=== PATIENT | female | born 1995 | race African-American/Black ===

== ENCOUNTER 2017-04-16 18:36 | Emergency (ER) | payer BC, SELFPAY ==
[2017-04-16 18:40] VITALS: BP 152/88; PULSE 103; RESP 20; TEMP 36.6; O2SAT 98; BMI 49.6
--- NOTE | 2017-04-16 18:59 | HMH.EDUTC ---
[facility] [place] Disposition Clinical Impression: Medication refill Disposition: Home, Self-Care Condition on Discharge: Good Instructions: Paroxetine, Bupropion Additional Instructions: Follow up with Family doctor TARA Return if needed Go straight to ER if any distress or worsening of symptoms Prescriptions: buPROPion HCl [Wellbutrin Xl] 150 mg PO DAILY #3 tab.er.24h PARoxetine HCl [Paxil 20mg Tablet] 20 mg PO DAILY #3 tab Time of Disposition: 19:12 Medical Decision Making - Medical Records Medical records reviewed: Yes: I reviewed the patient's medical records. Vital Signs: 04/16/17 18:40 Temperature 97.9 F Temperature Source Temporal Artery Scan Pulse Rate [Right Brachial] 103 H Respiratory Rate 20 Blood Pressure [Right Arm] 152/88 Blood Pressure Mean [Right Arm] 109 Blood Pressure Source [Right Arm] Automatic Cuff Blood Pressure Position [Right Arm] Sitting 02 Sat by Pulse Oximetry 98 Oxygen Delivery Method Room Air - Anup Inquiry Pt receiving controlled substance: No Anup was queried for this patient: No - Reevaluation(s) Time: 19:06 Reevaluation #1: Patient advised that she would only get prescription for enough medication untill she could get in to see her Dr On Tuesday or Tuesday for her doctor to authorize refill [facility] [place] HPI - General Stated complaint: RX refill Mode of Arrival: Family Vehicle Source of Information: Patient Limitations: No Limitations Description of Symptoms (Recalled from Triage Doc. by RN): HERE FOR MEDICATION REFILLS HEENT Symptoms (Recalled from RN notes): No Resp Symptoms (Recalled from RN notes): No Skin Symptoms (Recalled from RN notes): No MS Symptoms (Recalled from RN notes): No Functional Status (Recalled from RN notes): N/A - History of Present Illness Provider Complaint: Patient state that she is on Paxil and Wellbutrin xL States that she missed her appointment and was needing to get a few of her medication prescribed to get her through until she sees her doctor on Tuesday or Tuesday. - Related Data Home Medications Medication Instructions Recorded Confirmed bupropion HCl XL 150 mg 24 hr 150 mg PO QAM 02/26/17 04/16/17 tablet, extended release paroxetine mesylate 20 mg tablet 10 mg PO QAM 02/26/17 04/16/17 Previous Rx's Medication Instructions Recorded PARoxetine HCl [Paxil 20mg Tablet] 20 mg PO DAILY #3 tab 04/16/17 buPROPion HCl [Wellbutrin Xl] 150 mg PO DAILY #3 tab.er.24h 04/16/17 Allergies Allergy/AdvReac Type Severity Reaction Status Date / Time No Known Allergies Allergy Verified 02/26/17 17:36 - Worker's Comp Is this a Worker's Comp case?: No [facility] History I have reviewed the patient's past medical history: Yes Laterality Cases: Bilateral: Tonsillectomy - Social History Smoking Status: Never smoker Alcohol Intake: current Alcohol Intake Frequency:: holidays/special occasions only Substance Use Type: denies use - Psychiatric History Expresses thoughts of harming self/others: None Suicide Plan Description: No Plan Family Hx:: Bleeding Disorder, Diabetes, Cancer ROS Obtained: Yes All systems reviewed & no additional complaints Physical Exam - General General appearance: alert, in no apparent distress - Respiratory Respiratory exam: Present: normal lung sounds bilaterally. Absent: respiratory distress - Cardiovascular Cardiovascular exam: Present: regular rate, normal rhythm. Absent: JVD - Neurological Exam Neurological exam: Present: alert, oriented X3
--- NOTE | 2017-04-16 19:03 | ED_ITS ---
[facility] [place]ression: Medication refill Disposition: Home, Self-Care Condition on Discharge: Good Instructions: Paroxetine, Bupropion Additional Instructions: Follow up with Family doctor TARA Return if needed Go straight to ER if any distress or worsening of symptoms Prescriptions: buPROPion HCl [Wellbutrin Xl] 150 mg PO DAILY #3 tab.er.24h PARoxetine HCl [Paxil 20mg Tablet] 20 mg PO DAILY #3 tab Time of Disposition: 19:12 Medical Decision Making - Medical Records Medical records reviewed: Yes: I reviewed the patient's medical records. Vital Signs: 04/16/17 18:40 Temperature 97.9 F Temperature Source Temporal Artery Scan Pulse Rate [Right Brachial] 103 H Respiratory Rate 20 Blood Pressure [Right Arm] 152/88 Blood Pressure Mean [Right Arm] 109 Blood Pressure Source [Right Arm] Automatic Cuff Blood Pressure Position [Right Arm] Sitting 02 Sat by Pulse Oximetry 98 Oxygen Delivery Method Room Air - Anup Inquiry Pt receiving controlled substance: No Anup was queried for this patient: No - Reevaluation(s) Time: 19:06 Reevaluation #1: Patient advised that she would only get prescription for enough medication untill she could get in to see her Dr On Tuesday or Tuesday for her doctor to authorize refill [facility] [place] - General Stated complaint: RX refill Mode of Arrival: Family Vehicle Source of Information: Patient Limitations: No Limitations Description of Symptoms (Recalled from Triage Doc. by RN): HERE FOR MEDICATION REFILLS HEENT Symptoms (Recalled from RN notes): No Resp Symptoms (Recalled from RN notes): No Skin Symptoms (Recalled from RN notes): No MS Symptoms (Recalled from RN notes): No Functional Status (Recalled from RN notes): N/A - History of Present Illness Provider Complaint: Patient state that she is on Paxil and Wellbutrin xL States that she missed her appointment and was needing to get a few of her medication prescribed to get her through until she sees her doctor on Tuesday or Tuesday. - Related Data Home Medications Medication Instructions Recorded Confirmed bupropion HCl XL 150 mg 24 hr 150 mg PO QAM 02/26/17 04/16/17 tablet, extended release paroxetine mesylate 20 mg tablet 10 mg PO QAM 02/26/17 04/16/17 Previous Rx's Medication Instructions Recorded PARoxetine HCl [Paxil 20mg Tablet] 20 mg PO DAILY #3 tab 04/16/17 buPROPion HCl [Wellbutrin Xl] 150 mg PO DAILY #3 tab.er.24h 04/16/17 Allergies Allergy/AdvReac Type Severity Reaction Status Date / Time No Known Allergies Allergy Verified 02/26/17 17:36 - Worker's Comp Is this a Worker's Comp case?: No H History I have reviewed the patient's past medical history: Yes Laterality Cases: Bilateral: Tonsillectomy - Social History Smoking Status: Never smoker Alcohol Intake: current Alcohol Intake Frequency:: holidays/special occasions only Substance Use Type: denies use - Psychiatric History Expresses thoughts of harming self/others: None Suicide Plan Description: No Plan Family Hx:: Bleeding Disorder, Diabetes, Cancer ROS Obtained: Yes All systems reviewed & no additional complaints Physical Exam - General General appearance: alert, in no apparent distress - Respiratory Respiratory exam: Present: normal lung sounds b
[2017-04-16 19:16] VITALS: BP 148/78; PULSE 94; RESP 20; TEMP 36.6; O2SAT 98
== END 2017-04-16 19:17 | disposition home or self-care (01) ==
PROVIDERS: Emergency Provider Nurse Practitioner
DX: Z76.0 Encounter for issue of repeat prescription (principal); F41.8 Other specified anxiety disorders
CPT/HCPCS: 99202

== ENCOUNTER → 2019-10-06 13:15 | Outpatient (CLI) | payer BC, SELFPAY | PROVIDERS: PCP Nurse Practitioner Family; Visit Provider Nurse Practitioner Family | DX: G47.30 Sleep apnea, unspecified (principal); R51 Headache; E66.9 Obesity, unspecified | CPT/HCPCS: G0399 ==

== ENCOUNTER → 2019-11-01 09:46 | Outpatient (CLI) | payer BC, SELFPAY ==
[2019-11-01 10:19] LABS: Basophils % 0.6 % (0.1-2.0); Eosinophils # 0.1 K/mm3 (0.0-0.4); Eosinophils % 0.8 % (0.1-12.0); Hematocrit 44.4 % (37.0-47.0); Hemoglobin 14.7 g/dL (12.2-16.2); Lymphocytes % 26.3 % (10-50); Mean Corpuscular HGB Conc 33.1 g/dL (31.8-35.4); Mean Corpuscular Hemoglobin 28.8 pg (27.0-31.2); Mean Corpuscular Volume 87.2 fl (81-99); Mean Platelet Volume 7.8 fl (7.4-10.4); Monocytes # 0.4 K/mm3 (0.1-1.0); Monocytes % 5.6 % (1.7-9.3); Neutrophils # 5.1 K/mm3 (1.8-7.8); Neutrophils % 66.7 % (37.0-80.0); Platelet Count 259 K/mm3 (142-424); Red Blood Count 5.09 M/mm3 (4.20-5.40); Red Cell Distribution Width 13.4 % (11.5-17.5); White Blood Count 7.6 K/mm3 (4.8-10.8)
[2019-11-01 12:03] LABS: Alanine Aminotransferase 24 U/L (12-78); Albumin Level 4.2 g/dl (3.5-5.0); Albumin/Globulin Ratio 1.3 (1.1-1.8); Alkaline Phosphatase 93 U/L (38-126); Anion Gap 11.6 mEq/L (5-15); Aspartate Amino Transferase 23 U/L (14-36); Bilirubin,Total 0.8 mg/dl (0.2-1.3); Blood Urea Nitrogen 12 mg/dl (7-17); Calcium 9.6 mg/dl (8.4-10.2); Carbon Dioxide 29 mmol/L (22.0-30.0); Chloride 104 mmol/L (98-107); Chol/HDL Ratio 3.9 (1-3.5); Cholesterol 138 mg/dl (140-200); Estimated Glomerular Filt Rate 87 ml/min (>60); GFR (African American) 106 ML/MIN (>60); Globulin 3.3 g/dL (1.3-3.2); Glucose 97 mg/dl (74-100); HDL Cholesterol 35 mg/dl (40-60); Potassium 4.6 mmoL/L (3.5-5.1); Sodium 140 mmol/L (136-145); Total Protein,Serum 7.5 g/dl (6.3-8.2); Triglycerides 257 mg/dl (30-150); VLDL Cholesterol 51 mg/dL (0-40)
[2019-11-01 12:44] LABS: Hemoglobin A1C 5.4 % (4.0-6.0)
[2019-11-01 13:02] LABS: Thyroid Stimulating Hormone 2.85 uIU/mL (0.465-4.68)
[2019-11-01 13:20] LABS: Vitamin B12 352 pg/mL (239-931)
== END ==
PROVIDERS: Visit Provider Nurse Practitioner Family
DX: F41.8 Other specified anxiety disorders (principal); E66.01 Morbid (severe) obesity due to excess calories; E55.9 Vitamin D deficiency, unspecified; R40.0 Somnolence; Z79.899 Other long term (current) drug therapy
CPT/HCPCS: 36415; 80053; 80061; 82306; 82607; 83036; 84443; 85025

== ENCOUNTER 2020-02-02 17:24 | Emergency (ER) | payer BC, SELFPAY ==
[2020-02-02 17:46] VITALS: BP 140/81; PULSE 69; RESP 18; TEMP 36.6; O2SAT 99; BMI 51.3
--- NOTE | 2020-02-02 17:57 | HMH.EDUTC ---
[facility] [place]ression: Close exposure to COVID-19 virus Disposition: Home, Self-Care Condition on Discharge: Good Instructions: DI for COVID-19 (Suspected or Confirmed ), COVID-19: Testing and Tracing, Preventing the Spread of Coronavirus Discharge Instructions, Coronavirus Disease 2019 Additional Instructions: *Monitor Temp, Over the counter Motrin or Tylenol as directed/as needed Tylenol every 4 hours and Motrin every 6 hours (as long as your family doctor has told you that you can take it) for fever or pain. and straight to ER if unable to lower temp less than 101.0 after medication given *Warm salt water gargles may help to soothe the throat *Throat Lozenges *Warm fluids like tea with honey may help to soothe the throat *Sleep elevated *Humidifier/Vaporizer Follow up IMMEDIATELY for new or worsening symptoms or no Noticeable improvement over the next 48-72 hours. 911 for difficulty breathing or swallowing You were tested for today for COVID19 your test result should be back in the next 24-48 hours, you may call to the [facility] to see if your test results are back in the next 48 hours [phone] [facility] hours are 9am-9pm You was given a handout with instructions for Self Quarantine and Self isolation for while you wait on test results and what to do if they are positive If you are positive the Health Dept will be contacting you also Referrals: Tsering Klein APRN [Primary Care Provider] - As needed Forms: Work/School Release Time of Disposition: 17:59 Medical Decision Making - Anup Inquiry Pt receiving controlled substance: No Anup was queried for this patient: No Vital Signs: 02/02/20 17:46 Temperature 97.8 F Temperature Source Oral Pulse Rate [Radial] 69 Respiratory Rate 18 Blood Pressure [Right Arm] 140/81 Blood Pressure Mean [Right Arm] 100 Blood Pressure Source [Right Arm] Automatic Cuff Blood Pressure Position [Right Arm] Sitting 02 Sat by Pulse Oximetry 99 Oxygen Delivery Method Room Air Orders (Tests/Meds): ORDERS Category Date Time Status Covid-19 Nasal PCR ([facility]) Routine Lab 02/02/20 17:50 [place] [facility] [place] - General Stated complaint: covid exposure,headache,sore throat Time Seen by Provider: 02/02/20 17:57 Mode of Arrival: Ambulatory Source of Information: Patient Limitations: No Limitations Description of Symptoms (Recalled from Triage Doc. by RN): covid exposure HEENT Symptoms (Recalled from RN notes): No Resp Symptoms (Recalled from RN notes): No Skin Symptoms (Recalled from RN notes): No MS Symptoms (Recalled from RN notes): No Functional Status (Recalled from RN notes): wnl - History of Present Illness Provider Complaint: Patient states that she lives with family and one member of her household recently tested positive for COVID States that after they told her they was positive she noticed she had a small headache and her throat felt scratchy and sore so she wanted to come in and get tested for COVID - Related Data Previous Rx's Medication Instructions Recorded bupropion HCl 300 mg 24 hr tablet, 300 mg PO DAILY #30 tab 01/08/20 extended release sertraline 100 mg tablet 100 mg PO DAILY #30 tab 01/08/20 Allergies Allergy/AdvReac Type Severity Reaction Status Date / Time No Known Allergies Allergy Verified 11/29/19 09:17 - Worker's Comp Is this a Worker's Comp case?: No [facility] History - Hepatitis A Screen Drug use history?: No High risk sexual behaviors?: No History of sexually transmitted infection?: No Currently employed?: No Childcare worker?: No Do you have indoor plumbing?: Yes Do you have electricity?: Yes Attestation statement:: This patient has been screened for Hepatitis A risk factors. I have reviewed the patient's past medical history: Yes Laterality Cases: Bilateral: Tonsillectomy - Social History Smoking Status: Never smoker Alcohol Intake: never Alcohol Intake Frequency:: holidays/special occasions only
[2020-02-02 18:08] VITALS: BP 140/81; PULSE 69; RESP 18; TEMP 36.6; O2SAT 99
== END 2020-02-02 18:09 | disposition home or self-care (01) ==
PROVIDERS: Emergency Provider Nurse Practitioner; PCP Nurse Practitioner Family
DX: Z20.828 Contact with and (suspected) exposure to other viral communicable diseases (principal); R51.9 Headache, unspecified; J02.9 Acute pharyngitis, unspecified
CPT/HCPCS: 99201; U0003

== ENCOUNTER 2020-02-22 19:10 | Emergency (ER) | payer BC, SELFPAY ==
[2020-02-22 19:30] VITALS: BP 115/85; PULSE 71; RESP 20; TEMP 37.4; O2SAT 97; BMI 50.6
--- NOTE | 2020-02-22 19:49 | HMH.EDUTC ---
[facility] [place] Disposition Clinical Impression: Exposure to COVID-19 virus Disposition: Home, Self-Care Condition on Discharge: Good Instructions: Preventing the Spread of Coronavirus Discharge Instructions Additional Instructions: You have been tested for COVID19. Please isolate yourself as if you are positive until test results received. Vitamin D, Vitamin C and zinc may help. Please call your PCP if you feel worse. Go to ER if you have shortness of breath, etc Referrals: Tsering Klein APRN [Primary Care Provider] - Time of Disposition: 19:55 Medical Decision Making - Anup Inquiry Pt receiving controlled substance: No [facility] [place] HPI - General Stated complaint: covid test Time Seen by Provider: 02/22/20 19:49 - History of Present Illness Provider Complaint: Patient presents with cold symptoms X 3 days. No fever. Now has no taste or smell. No vomiting or diarrhea. Onset (ago): day(s) (3) Relieving factors: none Exacerbating factors: none Associated symptoms: denies other symptoms Treatments prior to arrival: other (OTC cold medicine) - Related Data Previous Rx's Medication Instructions Recorded bupropion HCl 300 mg 24 hr tablet, 300 mg PO DAILY #30 tab 02/21/20 extended release sertraline 100 mg tablet 100 mg PO DAILY #30 tab 02/21/20 Allergies Allergy/AdvReac Type Severity Reaction Status Date / Time No Known Allergies Allergy Verified 11/29/19 09:17 [facility] History - Hepatitis A Screen Attestation statement:: This patient has been screened for Hepatitis A risk factors. I have reviewed the patient's past medical history: Yes Laterality Cases: Bilateral: Tonsillectomy - Social History Smoking Status: Never smoker Alcohol Intake: never Alcohol Intake Frequency:: holidays/special occasions only Substance Use Type: denies use Occupational Status: employed Housing: house Family Hx:: Bleeding Disorder, Diabetes, Cancer ROS Obtained: Yes All systems reviewed & no additional complaints - ENT Ears, Nose, Mouth, and Throat: Reports nasal congestion, Reports nasal discharge, Reports other (loss of taste and smell) Physical Exam - General General appearance: alert, in no apparent distress - Head Head exam: atraumatic, normocephalic, normal inspection - Eye Eye exam: Present: normal appearance, PERRL, EOMI - ENT ENT exam: Present: normal exam, normal oropharynx, mucous membranes moist, TM's normal bilaterally, normal external ear exam - Neck Neck exam: Present: normal inspection, full ROM, trachea midline. Absent: meningismus, lymphadenopathy - Chest Chest inspection: Present: normal inspection, symmetric chest wall rise. Absent: tenderness - Respiratory Respiratory exam: Present: normal lung sounds bilaterally. Absent: respiratory distress - Cardiovascular Cardiovascular exam: Present: regular rate, normal rhythm. Absent: JVD - Abdominal Exam Abdominal exam: Present: soft, normal bowel sounds. Absent: distention, tenderness, guarding - Extremities Exam Extremities exam: Present: normal inspection, full ROM, normal capillary refill. Absent: calf tenderness - Back Exam Back exam: Present: normal inspection. Absent: tenderness - Neurological Exam Neurological exam: Present: alert, oriented X3 - Psychiatric Psychiatric exam: Present: normal affect, normal mood - Skin Skin exam: Present: warm, dry, intact, normal color - Lymphatic Lymphatic Findings: no adenopathy
[2020-02-22 19:58] VITALS: BP 115/85; PULSE 71; RESP 20; TEMP 37.4; O2SAT 97
--- NOTE | 2020-02-23 09:19 | PC.NURSE ---
voicemail left for patient to return call
--- NOTE | 2020-02-23 12:15 | PC.NURSE ---
PATIENT NOTIFIED OF POSITIVE COVID TEST AT THIS TIME
== END 2020-02-22 20:00 | disposition home or self-care (01) ==
PROVIDERS: Emergency Provider Physician Assistant; PCP Nurse Practitioner Family
DX: U07.1 COVID-19 (principal)
CPT/HCPCS: 99202; G0463; U0003

== ENCOUNTER → 2020-04-19 10:56 | Outpatient (CLI) | payer BC, SELFPAY ==
[2020-04-19 12:21] LABS: Basophils % 0.4 % (0.1-2.0); Eosinophils % 0.6 % (0.1-12.0); Hematocrit 41.1 % (37.0-47.0); Hemoglobin 12.8 g/dL (12.2-16.2); Lymphocytes # 1.4 K/mm3 (0.7-4.5); Lymphocytes % 27.5 % (10-50); Mean Corpuscular HGB Conc 31.1 g/dL (31.8-35.4); Mean Corpuscular Hemoglobin 27.4 pg (27.0-31.2); Mean Corpuscular Volume 88.2 fl (81-99); Mean Platelet Volume 8.1 fl (7.4-10.4); Monocytes # 0.3 K/mm3 (0.1-1.0); Monocytes % 6.1 % (1.7-9.3); Neutrophils # 3.3 K/mm3 (1.8-7.8); Neutrophils % 65.5 % (37.0-80.0); Platelet Count 255 K/mm3 (142-424); Red Blood Count 4.66 M/mm3 (4.20-5.40); Red Cell Distribution Width 13.6 % (11.5-17.5); White Blood Count 5.1 K/mm3 (4.8-10.8)
[2020-04-19 12:54] LABS: Erythrocyte Sedimentation Rate 25 mm/hr (0-20)
[2020-04-19 12:55] LABS: Alanine Aminotransferase 34 U/L (12-78); Albumin Level 4.4 g/dl (3.5-5.0); Albumin/Globulin Ratio 1.4 (1.1-1.8); Alkaline Phosphatase 87 U/L (38-126); Anion Gap 13.2 mEq/L (5-15); Aspartate Amino Transferase 26 U/L (14-36); Bilirubin,Total 0.7 mg/dl (0.2-1.3); Blood Urea Nitrogen 14 mg/dl (7-17); Calcium 9.7 mg/dl (8.4-10.2); Carbon Dioxide 26 mmol/L (22.0-30.0); Chloride 105 mmol/L (98-107); Estimated Glomerular Filt Rate 87 ml/min (>60); GFR (African American) 106 ML/MIN (>60); Globulin 3.2 g/dL (1.3-3.2); Glucose 101 mg/dl (74-100); Potassium 4.2 mmoL/L (3.5-5.1); Sodium 140 mmol/L (136-145); Total Protein,Serum 7.6 g/dl (6.3-8.2)
[2020-04-19 13:13] LABS: Free T4 (Free Thyroxine) 0.99 ng/dl (0.78-2.19)
[2020-04-19 13:14] LABS: 25-OH Vitamin D, Total 16.5 ng/mL (30-100)
[2020-04-19 13:46] LABS: Vitamin B12 984 pg/mL (239-931)
== END ==
PROVIDERS: Visit Provider Nurse Practitioner Family
DX: R51.9 Headache, unspecified (principal); E55.9 Vitamin D deficiency, unspecified
CPT/HCPCS: 36415; 80053; 82306; 82607; 84439; 84443; 85025; 85651

== ENCOUNTER → 2020-10-13 19:59 | Outpatient (CLI) | payer OTHER, SELFPAY | PROVIDERS: Visit Provider Nurse Practitioner Family | DX: Z20.822 Contact with and (suspected) exposure to COVID-19 (principal) | CPT/HCPCS: U0003 ==

== ENCOUNTER → 2021-04-10 09:43 | Outpatient (CLI) | payer OTHER, SELFPAY ==
[2021-04-10 10:20] LABS: Basophils # 0.1 K/mm3 (0-0.2); Eosinophils # 0.1 K/mm3 (0.0-0.4); Eosinophils % 0.8 % (0.1-12.0); Hematocrit 44.3 % (37.0-47.0); Hemoglobin 14.2 g/dL (12.2-16.2); Lymphocytes # 1.6 K/mm3 (0.7-4.5); Lymphocytes % 26.8 % (10-50); Mean Corpuscular HGB Conc 32.1 g/dL (31.8-35.4); Mean Corpuscular Hemoglobin 28.3 pg (27.0-31.2); Mean Corpuscular Volume 88.2 fl (81-99); Mean Platelet Volume 8.6 fl (7.4-10.4); Monocytes # 0.4 K/mm3 (0.1-1.0); Monocytes % 5.7 % (1.7-9.3); Neutrophils % 65.7 % (37.0-80.0); Platelet Count 302 K/mm3 (142-424); Red Blood Count 5.02 M/mm3 (4.20-5.40); Red Cell Distribution Width 13.3 % (11.5-17.5); White Blood Count 6.1 K/mm3 (4.8-10.8)
[2021-04-10 10:57] LABS: Alanine Aminotransferase 18 U/L (12-78); Albumin Level 4.1 g/dl (3.5-5.0); Albumin/Globulin Ratio 1.4 (1.1-1.8); Alkaline Phosphatase 69 U/L (38-126); Anion Gap 12.5 mEq/L (5-15); Aspartate Amino Transferase 17 U/L (14-36); Bilirubin,Total 0.6 mg/dl (0.2-1.3); Blood Urea Nitrogen 10 mg/dl (7-17); Calcium 9.2 mg/dl (8.4-10.2); Carbon Dioxide 25 mmol/L (22.0-30.0); Chloride 105 mmol/L (98-107); Estimated Glomerular Filt Rate 101 ml/min (>60); GFR (African American) 122 ML/MIN (>60); Globulin 2.9 g/dL (1.3-3.2); Glucose 88 mg/dl (74-100); Potassium 4.5 mmoL/L (3.5-5.1); Sodium 138 mmol/L (136-145)
[2021-04-10 11:15] LABS: 25-OH Vitamin D, Total 40.9 ng/mL (30-100)
[2021-04-10 12:30] LABS: Vitamin B12 > 1000 pg/mL (239-931)
== END ==
PROVIDERS: Visit Provider Nurse Practitioner Family
DX: E78.2 Mixed hyperlipidemia (principal); E55.9 Vitamin D deficiency, unspecified; E66.01 Morbid (severe) obesity due to excess calories; R40.0 Somnolence
CPT/HCPCS: 36415; 80053; 82306; 82607; 83036; 84443; 85025